=== PATIENT | female | born 1975 | race Caucasian/White ===

== ENCOUNTER → 2024-04-13 | Day surgery (SDC) | payer MEDICAID ==
[~2024-04-13] VITALS: Ht 175.3 cm; Wt 77.2 kg
[~2024-04-13] MED LIST: FentaNYL CITRATE PF 100 MCG/2 ML VIAL IVP PRN; GLYCOPYRROLATE 0.2 MG/ML VIAL ONE; HYDROmorphone HCL 2 MG/ML SYRINGE IVP PRN; LIDOCAINE/PF 2% 5 ML VIAL ONE; MEPERIDINE-PF 25 MG/ML VIAL IVP PRN; OXYGEN THERAPY IH SCH; PROPOFOL 1% 20 ML VIAL IVP ONE; SODIUM CHLORIDE 0.9% 1,000 ML IV ONE; SODIUM CHLORIDE 0.9% 1,000 ML ONE
== END | disposition still patient (30) ==
LOC: SURGERY 07:25
PROVIDERS: ATTEND Specialist
DX: R10.13 Epigastric pain (principal); K21.9 Gastro-esophageal reflux disease without esophagitis; R14.0 Abdominal distension (gaseous); Z79.899 Other long term (current) drug therapy; Z82.49 Family history of ischemic heart disease and other diseases of the circulatory system
CPT/HCPCS: 84703; 88305; J2704; J3490; J7030